=== PATIENT | female | born 1995 | race Caucasian/White ===

== ENCOUNTER 2019-08-18 21:16 | Emergency (ER) | payer OTHER ==
[~2019-08-18] VITALS: Ht 160 cm; Wt 71.7 kg
[2019-08-18 21:21] VITALS: BP 129/91
== END 2019-08-18 21:43 | disposition home or self-care (01) ==
LOC: ED 21:16
DX: J40 Bronchitis, not specified as acute or chronic (principal); G43.909 Migraine, unspecified, not intractable, without status migrainosus